=== PATIENT | female | born 1980 | race Caucasian/White ===

== ENCOUNTER 2019-12-19 09:22 | Day surgery (SDC) | payer BC, OTHER ==
[2019-12-14 12:04] VITALS: BMI 20.9
[2019-12-19 10:43] VITALS: TEMP 98.1
[2019-12-19 12:45] VITALS: BP 103/68; PULSE 62
--- NOTE | 2019-12-20 16:07 | PATH ---
Surgical Pathology Report Patient Name: SKYLA IBRAHIM [facility] [place]. Rec. #: [id number] /Age/Gender: 1980 (Age: 39) / F Account: [id number] Location: [facility]-ENDOSCOPY Taken: 12/19/2019 Received: 12/19/2019 Reported: 12/20/2019 Physicians: SEEMA FLORES Specimen(s) Received A: DUODENUM, FIRST PORTION B: STOMACH C: ESOPHAGUS Clinical History Epigastric pain, family history of stomach and colon cancer Postoperative diagnosis: Mild GERD, family history of stomach cancer, hemorrhoids Final Diagnosis A. DUODENUM, FIRST PORTION, BIOPSY: DUODENAL MUCOSA WITHOUT SIGNIFICANT PATHOLOGIC FINDINGS. B. STOMACH, BIOPSY: GASTRIC MUCOSA WITH MINIMAL CHRONIC INFLAMMATION. IMMUNOHISTOCHEMICAL STAIN FOR H. PYLORI IS NEGATIVE. C. ESOPHAGUS, BIOPSY: SQUAMOUS MUCOSA WITH CHANGES OF MILD REFLUX TYPE ESOPHAGITIS. Positive and negative controls (internal if applicable) show appropriate results. Electronically Signed Kavya Shankar M.D. Gross Description A. Received in formalin, labeled "biopsy duodenum first portion" are 2 gray, irregular portions of soft tissue measuring 0.2 and 0.4 cm. in greatest dimension. The specimens are submitted in toto in one cassette. B. Received in formalin, labeled "biopsy stomach" are 3 gray, irregular portions of soft tissue ranging from 0.3-0.5 cm. in greatest dimension. The specimens are submitted in toto in one cassette. C. Received in formalin, labeled "biopsy esophagus" are 2 gray, irregular portions of soft tissue measuring 0.1 and 0.4 cm. in greatest dimension. The specimens are submitted in toto in one cassette. /12/19/2019 saudi/12/19/2019
== END 2019-12-19 13:05 | disposition home or self-care (01) ==
LOC: JASU-ENDO 09:22
PROVIDERS: ATTEND Internal Medicine Gastroenterology
PROC: 0DB38ZX Excision of Lower Esophagus, Via Natural or Artificial Opening Endoscopic, Diagnostic (ICD-10-PCS; 2019-12-19)
PROC: 0DB68ZX Excision of Stomach, Via Natural or Artificial Opening Endoscopic, Diagnostic (ICD-10-PCS; 2019-12-19)
PROC: 0DJD8ZZ Inspection of Lower Intestinal Tract, Via Natural or Artificial Opening Endoscopic (ICD-10-PCS; principal; 2019-12-19 10:30)
DX: Z12.11 Encounter for screening for malignant neoplasm of colon (principal); Z80.0 Family history of malignant neoplasm of digestive organs; K64.8 Other hemorrhoids; K22.2 Esophageal obstruction
CPT/HCPCS: 43239; G0105; 81025; 88305-TC; 88342-TC